=== PATIENT | female | born 1985 | race Caucasian/White ===

== ENCOUNTER → 2025-07-19 | Outpatient (CLI) | payer OTHER ==
[~2025-07-19] MED LIST: HYDR-643 PO; SUMA50TA2 PO
[2025-07-19 10:10] VITALS: TEMP 98.2
[2025-07-19 11:22] VITALS: BP 152/87; O2SAT 99
[2025-07-19] MEDS: LIDOCAINE 1% MDV 20 ML VIAL SC SCH (12:11)
== END ==
LOC: M IRPRO 09:42
PROVIDERS: ATTEND Nurse Practitioner Family
DX: E04.2 Nontoxic multinodular goiter (principal)